=== PATIENT | male | born 1970 | race Two or more races ===

== ENCOUNTER 2019-09-05 13:03 | Emergency (ER) | payer MEDICAID ==
[~2019-09-05] VITALS: Ht 162.6 cm; Wt 77.1 kg
--- NOTE | 2019-09-05 13:30 | NUR ---
worsening scrotal pain and swelling x 3 days. PATIENT A/OX4, CHANGED INTO GOWN, NO DISTRESS NOTED.
[2019-09-05 14:26] LABS: APPEARANCE,URINE Clear (CLEAR); BILIRUBIN,URINE Negative (NEGATIVE); BLOOD, URINE Trace-intact Ery/uL (NEGATIVE); COLOR,URINE Yellow (YELLOW); KETONES,URINE Negative (NEGATIVE); LEUKOCYTE ESTERASE ,URINE Negative (NEGATIVE); NITRITE, URINE Negative (NEGATIVE); PROTEIN,URINE Negative (NEGATIVE); UGLUCOSE Negative (NEGATIVE); UROBILINOGEN,URINE 0.2 EU/dL (0.2)
[2019-09-05 14:33] LABS: BACTERIA,URINE None seen /HPF (None Seen); SQUAMOUS EPITHELIAL CELL,UR Rare /HPF (None Seen); WBC,URINE 0-1 /HPF (0-3)
--- NOTE | 2019-09-05 15:55 | NUR ---
Ambulatory with a steady gait IV removed. Catheter intact and site benign. Pressure and 4x4 applied to site. No bleeding noted.Patient discharged to home in stable condition. Written and verbal after care instructions given. Patient verbalizes understanding of instruction.
[2019-09-05 15:56] VITALS: BP 136/87
== END 2019-09-05 15:56 | disposition home or self-care (01) ==
LOC: ER 13:10
DX: N45.2 Orchitis (principal)
CPT/HCPCS: 76870-TC; 81000-TC; 87086-TC

== ENCOUNTER 2019-11-08 14:36 | Emergency (ER) | payer MEDICAID ==
[~2019-11-08] VITALS: Ht 177.8 cm; Wt 74.8 kg
--- NOTE | 2019-11-08 14:58 | NUR ---
PATIENT ARRIVED AT UNIT AMBULATORY. A/O X 4. NO ACUTE DISTRESS. WITH REPORT OF TESTICULAR PAIN AND SWELLING X 1 WEEK, PATIENT REPORTS HAVING HERNIA AND HE IS SEEING A UROLOGIST AND WAS RECOMMENDED TO COME TO THE ER. CONNECTED TO MONITOR. WILL CONTINUE TO MONITOR ACCORDINGLY
[2019-11-08] MEDS ORDERED: oxyCODONE/APAP (5/325 MG) 1 UDTAB TABLET ONE (15:20)
[2019-11-08] MEDS ORDERED: IBUPROFEN 600 MG TABLET PO ONE ×2 (15:21→15:30)
[2019-11-08] MEDS ORDERED: oxyCODONE/APAP (5/325 MG) 1 UDTAB TABLET PO ONE (15:30)
--- NOTE | 2019-11-08 16:08 | NUR ---
Patient discharged to home in stable condition. Written and verbal after care instructions given. Written prescription provided to patient. Patient verbalizes understanding of instruction.
[2019-11-08 16:09] VITALS: BP 148/84
== END 2019-11-08 16:09 | disposition home or self-care (01) ==
LOC: ER 14:37
DX: K40.90 Unilateral inguinal hernia, without obstruction or gangrene, not specified as recurrent (principal)